=== PATIENT | male | born 1975 | race Caucasian/White ===

== ENCOUNTER 2020-02-14 23:17 | Emergency (ER) | payer OTHER ==
--- NOTE | 2020-02-14 23:44 | EDM.PDOC ---
ED HPI GENERAL MEDICAL PROBLEM - General Chief Complaint: Abdominal Pain Stated Complaint: ABDOMINAL PAIN Time Seen by Provider: 02/14/20 23:27 Source of Information: Reports: Patient History Limitations: Reports: No Limitations - History of Present Illness INITIAL COMMENTS - FREE TEXT/NARRATIVE: Mr. Gomez is a very pleasant 44-year-old gentleman who now presents the ED stating that he developed sudden onset left flank pain yesterday, after throwing his kids in the pool the day before. He thought that it was a muscle spasm, however, the pain then wrapped around to his left upper quadrant this morning, and became more intense around 17:00 this afternoon. He is unable to describe the character of the pain. He states that it waxes and wanes, however, he has not identified any modifiers. No relief following Tylenol. He has had slight nausea, but no vomiting, constipation, diarrhea, dysuria, urinary frequency, or gross hematuria. No prior similar symptoms. Here in the ED, the patient's initial BP is found to be mildly elevated at 159/99, otherwise, he is hemodynamically stable, afebrile, saturating 94% on room air. The patient states that he was seen at a walk-in clinic in [place], [place], 4 days ago, for symptoms of sinusitis. A COVID-19 test was negative, and the patient was prescribed an antibiotic to treat sinusitis, that the patient states he is still taking. Other than his sinusitis symptoms and his current complaint, the patient denies having a recent fever, chills, sore throat, ear pain, cough, dyspnea, chest pain, palpitations, vomiting, constipation, diarrhea, urinary symptoms, recent weight gain or weight loss, recent bloody bowel movements or black bowel movements, recent joint aches, headaches, or rashes. The patient and his family are visiting from [place], [place]. Left Abdomen Pain Score (Numeric/FACES): 7 - Related Data Allergies Allergy/AdvReac Type Severity Reaction Status Date / Time No Known Allergies Allergy Verified 02/14/20 23:28 Home Meds: Home Meds Ezetimibe [Zetia] 10 mg PO DAILY 02/14/20 [History] Loratadine [Claritin] 10 mg PO DAILY 02/14/20 [History] Omeprazole Magnesium [Prilosec] 20 mg PO DAILY 02/14/20 [History] Orphenadrine [Norflex] 1 tab PO Q12H PRN #14 tab.er 02/15/20 [Rx] Past Medical History HEENT History: Reports: Other (See Below) (Mnire disease) Cardiovascular History: Reports: High Cholesterol - Past Surgical History HEENT Surgical History: Reports: Oral Surgery (wisdom teeth extraction) Male Surgical History: Reports: Vasectomy Social & Family History - Tobacco Use Smoking Status *Q: Never Smoker - Alcohol Use Alcohol Use History: Yes Alcohol Use Frequency: Socially - Recreational Drug Use Recreational Drug Use: No - Living Situation & Occupation Living situation: Reports: , with Spouse, with Family (2 kids) Occupation: Retired ED ROS GENERAL - Review of Systems Review Of Systems: Comprehensive ROS is negative, except as noted in HPI. ED EXAM, GI/ABD - Physical Exam Exam: See Below Exam Limited By: No Limitations General Appearance: Alert, WD/WN, No Apparent Distress Eyes: Bilateral: Normal Appearance, EOMI Ears: Normal External Exam, Hearing Grossly Normal Nose: Normal Inspection Throat/Mouth: Normal Inspection, Normal Lips, Normal Voice, No Airway Compromise Head: Atraumatic, Normocephalic Neck: Normal Inspection, Full Range of Motion Respiratory/Chest: No Respiratory Distress, Lungs Clear, Normal Breath Sounds, No Accessory Muscle Use Cardiovascular: Normal Peripheral Pulses, Regular Rate, Rhythm, No Edema, No Gallop, No JVD, No Murmur, No Rub GI/Abdominal Exam: Normal Bowel Sounds, Soft, Non-Tender (the patient is able to identify pain in his LUQ and left abdomen, but no tenderness to palpation), No Organomegaly, No Distention, No Abnormal Bruit, No Mass (Male) Exam: Deferred Rectal (Males) Exam: Deferred Back Exam: Normal Inspection, Full Range of Motion. No: CVA Tenderness (L), CVA Tenderness (R) Extremities: Normal Inspection, Normal Range of Motion, No Pedal Edema, Normal Capillary Refill Neurological: Alert, Oriented, Normal Cognition, No Motor/Sensory Deficits Psychiatric: Normal Affect Skin Exam: Warm, Dry, Intact, Normal Color, No Rash Course - Vital Signs Last Recorded V/S: Last Vital Signs Temp 36.3 C 02/14/20 23:22 Pulse 84 02/14/20 23:22 Resp 16 02/14/20 23:22 BP 159/99 H 02/14/20 23:22 Pulse Ox 94 L 02/14/20 23:22 - Orders/Labs/Meds Orders: Active Orders 24 hr Category Date Time Status Abdomen Pelvis w Cont [CT] Stat Exams 02/15/20 00:00 Taken Labs: Laboratory Tests 02/14/20 02/14/20 02/14/20 Range/Units 23:30 23:30 23:45 WBC 4.88 (4.23-9.07) K/mm3 RBC 5.42 (4.63-6.08) M/mm3 Hgb 15.9 (13.7-17.5) gm/dl Hct 46.6 (40.1-51.0) % MCV 86.0 (79.0-92.2) fl MCH 29.3 (25.7-32.2) pg MCHC 34.1 (32.2-35.5) g/dl RDW Std Deviation 40.0 (35.1-43.9) fL Plt Count 341 H (163-337) K/mm3 MPV 8.8 L (9.4-12.3) fl Neutrophils % (Manual) 39 L (40-60) % Band Neutrophils % 0 (0-10) % Lymphocytes % (Manual) 54 H (20-40) % Atypical Lymphs % 0 % Monocytes % (Manual) 4 (2-10) % Eosinophils % (Manual) 2 (0.8-7.0) % Basophils % (Manual) 1 (0.2-1.2) Platelet Estimate Adequate Plt Morphology Comment Normal RBC Morph Comment Normal Sodium 140 (136-145) mEq/L Potassium 4.0 (3.5-5.1) mEq/L Chloride 101 (98-107) mEq/L Carbon Dioxide 29 (21-32) mEq/L Anion Gap 14.0 (5-15) BUN 16 (7-18) mg/dL Creatinine 1.2 (0.7-1.3) mg/dL Est Cr Clr Drug Dosing TNP Estimated GFR (MDRD) > 60 (>60) mL/min BUN/Creatinine Ratio 13.3 L (14-18) Glucose 99 (74-106) mg/dL Calcium 9.3 (8.5-10.1) mg/dL Total Bilirubin 0.4 (0.2-1.0) mg/dL AST 30 (15-37) U/L ALT 81 H (16-63) U/L Alkaline Phosphatase 71 (46-116) U/L Total Protein 8.3 H (6.4-8.2) g/dl Albumin 4.2 (3.4-5.0) g/dl Globulin 4.1 gm/dL Albumin/Globulin Ratio 1.0 (1-2) Lipase 94 (73-393) U/L Urine Color Yellow (Yellow) Urine Appearance Clear (Clear) Urine pH 6.0 (5.0-8.0) Ur Specific [place] > or = 1.030 (1.005-1.030) Urine Protein Negative (Negative) Urine Glucose (UA) Negative (Negative) Urine Ketones Negative (Negative) Urine Occult Blood Negative (Negative) Urine Nitrite Negative (Negative) Urine Bilirubin Negative (Negative) Urine Urobilinogen 0.2 (0.2-1.0) Ur Leukocyte Esterase Negative (Negative) Urine RBC 0-5 (0-5) /hpf Urine WBC 0-5 (0-5) /hpf Ur Squamous Epith Cells 0-5 (0-5) /hpf Urine Bacteria Few (FEW) /hpf Urine Mucus Moderate H (FEW) /hpf Meds: Medications Discontinued Medications Generic Name Dose Route Start Last Admin Trade Name Freq PRN Reason Stop Dose Admin Diatrizoate Meglum/Diatrizoate Sod 120 ml 02/15/20 00:05 02/15/20 01:09 Gastrografin 37% PO 02/15/20 00:06 120 ml ONETIME ONE Administration Hydromorphone HCl 0.5 mg 02/15/20 00:44 02/15/20 00:47 Dilaudid IVPUSH 02/15/20 00:45 0.5 mg ONETIME ONE Administration Sodium Chloride 1,000 mls @ 150 mls/hr 02/14/20 23:45 02/15/20 00:48 Normal Saline IV 150 mls/hr ASDIRECTED BITA Administration Ibuprofen 600 mg 02/15/20 01:50 02/15/20 01:56 Motrin PO 02/15/20 01:51 600 mg ONETIME ONE Administration Iopamidol 100 ml 02/15/20 00:05 02/15/20 01:09 Isovue-300 (61%) IVPUSH 09/07/20 00:06 100 ml ONETIME ONE Administration Ondansetron HCl 4 mg 02/15/20 00:44 02/15/20 00:47 Zofran IVPUSH 02/15/20 00:45 4 mg ONETIME ONE Administration Orphenadrine Citrate 100 mg 02/15/20 01:50 02/15/20 01:56 Norflex PO 02/15/20 01:51 100 mg ONETIME STA Administration Sodium Chloride 10 ml 02/15/20 00:05 02/15/20 01:09 Saline Flush FLUSH 02/15/20 00:06 10 ml ONETIME ONE Administration - Re-Assessments/Exams Free Text/Narrative Re-Assessment/Exam: 02/14/20 23:39 As above, the patient developed sudden onset left flank pain yesterday, after throwing his kids into the pool the day before, then the pain wrapped around to his left upper quadrant today, and became more intense around 17:00 this evening, while his left flank pain continues. The pain is been waxing and waning, and he has not identified any modifiers. He has had slight nausea, but no vomiting, constipation, diarrhea, or urinary symptoms. No recent fever. On physical exam, the patient can identify the pain in his left upper quadrant and left side of his abdomen, but he does not have any actual abdominal tenderness, and, interestingly, he does not have any CVA tenderness, either. I think it is most likely that the patient is suffering from a ureterolith, however, intra- abdominal process is also possible. I have ordered a work-up that includes blood work, a urinalysis, and a CT scan of his abdomen and pelvis with oral and IV contrast. In the meantime, the patient will be given IV fluid. He declined an offer for both pain medication and anti-nausea medicine at this time. 02/15/20 00:13 The patient's CBC is remarkable for platelets elevated at 341,000, and is otherwise unremarkable. His CMP is remarkable for an ALT mildly elevated at 81, with an AST normal at 30, and the remainder of his CMP being unremarkable. His lipase level is within normal limits at 94. His urinalysis is unremarkable. 02/15/20 00:44 Notified by Juanpablo DUNN that the patient requested something for pain. I ordered IV Dilaudid and IV Zofran. 02/15/20 01:39 CT of the abdomen and pelvis with oral and IV contrast is read by Bronwyn as: 1. Negative for obstructing nephrolithiasis or urolithiasis. 2. Few scattered left-sided colonic diverticuli without diverticulitis. 3. No acute abdominal or pelvic findings. 02/15/20 01:50 Test results discussed with the patient. He states that he is feeling considerably better. I explained that because his work-up is entirely unremarkable and nondiagnostic, I cannot tell him the cause of his pain, however, I reassured him that whatever the cause, it does not appear to be serious. I speculated that his pain could be due to a muscle spasm, perhaps i nduced by him throwing his kids into the pool, although I also explained that there are no tests that I can run to prove that. I recommended that we start him on the muscle relaxant Norflex, to be taken along with [id number] ibuprofen, and the patient agreed. Departure - Departure Time of Disposition: 01:52 Disposition: Home, Self-Care 01 Condition: Good Clinical Impression: Muscle strain - Discharge Information *PRESCRIPTION DRUG MONITORING PROGRAM REVIEWED*: Not Applicable *COPY OF PRESCRIPTION DRUG MONITORING REPORT IN PATIENT CAROL: Not Applicable Prescriptions: Orphenadrine [Norflex] 1 tab PO Q12H PRN #14 tab.er PRN Reason: Muscle Spasm Referrals: PCP,Not In Area [Primary Care Provider] - Forms: ED Department Discharge Additional Instructions: You were seen in the emergency room after developing sudden onset left flank pain yesterday, that radiated around to your left abdomen today, associated with some nausea. Work-up in the ER included blood work, a urinalysis, and a CT scan of your abdomen and pelvis with oral and IV contrast. Your entire work-up was unremarkable, and does not explain the cause of your pain. You do not have a kidney stone. You do not have an intra-abdominal infection. Based on your history, physical examination, and ER tests, the cause of your pain is most likely due to a muscle strain. You have been started on the muscle relaxant Norflex, and a prescription for Norflex has [facility] to [facility], located in the [facility] across the street from the hospital. The [facility] will be open between noon and 2:00 this afternoon. Take 1 tablet of Norflex every 12 hours, starting this evening, 02/15/2020. Norflex works well with ibuprofen. We recommend that you take 3 tablets (600 mg) of [id number] ibuprofen up to every 8 hours, with food, as needed for discomfort. Stay active. If any other problems, please do not hesitate to return to the ER. Sepsis Event Note (ED) - Evaluation Sepsis Screening Result: No Definite Risk - Focused Exam Vital Signs: Vital Signs Temp Pulse Resp BP Pulse Ox 02/14/20 23:22 36.3 C 84 16 159/99 H 94 L - My Orders Last 24 Hours: My Active Orders 02/15/20 00:00 Abdomen Pelvis w Cont [CT] Stat - Assessment/Plan Last 24 Hours: My Active Orders 02/15/20 00:00 Abdomen Pelvis w Cont [CT] Stat
[2020-02-14] MEDS ORDERED: Sodium Chloride 0.9% 1,000 ML IV SCH (23:45)
[2020-02-15] MEDS ORDERED: Diatrizoate Meglumine/Diatrizoate Sodium 37% 120 ML Bottle PO ONE (00:05)
[2020-02-15] MEDS ORDERED: Iopamidol 612 MG/ML 100 ML Bottle IVPUSH ONE (00:05)
[2020-02-15] MEDS ORDERED: Ondansetron 4 MG/2 ML SDV IVPUSH ONE (00:44)
[2020-02-15] MEDS ORDERED: HYDROmorphone 0.5 MG/0.5 ML Syringe IVPUSH ONE (00:44)
[2020-02-15] MEDS: Sodium Chloride 0.9% 10 ML Syringe FLUSH ONE ×2 (00:48→01:09)
[2020-02-15] MEDS ORDERED: Ibuprofen 600 MG Tab PO ONE (01:50)
[2020-02-15] MEDS ORDERED: Orphenadrine 100 MG Tab.ER PO STA (01:50)
--- NOTE | 2020-02-15 11:02 | CT ---
CT abdomen and pelvis Technique: Multiple axial sections were obtained from above the dome of the diaphragm inferiorly through the pubic symphysis. Intravenous and oral contrast was utilized. Delayed images were obtained through the bladder. Reconstructed coronal and sagittal images were reviewed. Findings: Visualized lung bases show nothing acute. Liver contains no focal abnormality. Small hiatal hernia is noted. Spleen appears within normal limits. Adrenal glands show no nodule. Pancreas shows no discrete abnormality. Kidneys show symmetric contrast enhancement. Cyst is noted within the mid left kidney measuring 1.2 cm. Kidneys are otherwise unremarkable. Aorta shows no aneurysm. Gallbladder contains no calcified gallstones. No retroperitoneal adenopathy or mesenteric abnormalities are seen. No pelvic mass or adenopathy is identified. Delayed images shows contrast within the distal ureters and within the bladder. No ureteral dilatation or ureteral stone is appreciated. Bone window settings were reviewed which shows disc space narrowing at L5-S1 with posterior spurring and degenerative apophyseal change. Minimal spondylolisthesis at L5-S1 is seen due to small spondylolytic defects. Impression: 1. Findings which appear nonacute as described above. Diagnostic code #2 This report was dictated in MDT I agree with preliminary report from [facility], finalized on 02/15/20, 2:32 AM Central Daylight Time
== END 2020-02-15 02:04 | disposition home or self-care (01) ==
LOC: JD.ED 23:17
DX: S39.011A Strain of muscle, fascia and tendon of abdomen, initial encounter (principal); X58.XXXA Exposure to other specified factors, initial encounter
CPT/HCPCS: 36415; 74177; 80053; 81001; 83690; 85007; 85027; 96361; 96374; 96375; 99284; A9270; J1170; J2405; J7030; Q9963; Q9967